=== PATIENT | female | born 1980 | race Two or more races ===

== ENCOUNTER 2017-07-19 08:43 | Emergency (ER) | payer OTHER ==
[~2017-07-19] VITALS: Ht 162.6 cm; Wt 56.7 kg
[~2017-07-19 08:43] MED LIST: PERCOCET 5/3251 TAB PO
[2017-07-19] MEDS ORDERED: PERCOCET 5-3251 EACH PO (12:21)
== END 2017-07-19 12:42 | disposition home or self-care (01) ==
LOC: ER 08:43
DX: R10.2 Pelvic and perineal pain (principal)

== ENCOUNTER 2021-06-27 07:19 | Inpatient (IN) | payer OTHER ==
[~2021-06-27] VITALS: Ht 162.6 cm; Wt 52.2 kg
[~2021-06-27 07:19] MED LIST changes: +PERCOCET 5-3251 EACH PO
== END 2021-07-13 16:25 | disposition home or self-care (01) | DRG 340 ==
LOC: ER 07:19 → SEC-K 12:16 → O/R 12:16 → SURH 17:44 → SURG 06-29 19:06
PROVIDERS: ADMIT Surgery; ATTEND Surgery
PROC: 0DTJ4ZZ Resection of Appendix, Percutaneous Endoscopic Approach (ICD-10-PCS; principal; 2021-06-27 13:00)
PROC: 02HV33Z Insertion of Infusion Device into Superior Vena Cava, Percutaneous Approach (ICD-10-PCS; 2021-06-30)
PROC: 0W9J30Z Drainage of Pelvic Cavity with Drainage Device, Percutaneous Approach (ICD-10-PCS; 2021-07-05)
PROC: BW21YZZ Computerized Tomography (CT Scan) of Abdomen and Pelvis using Other Contrast (ICD-10-PCS; 2021-07-10)
DX: K35.33 Acute appendicitis with perforation, localized peritonitis, and gangrene, with abscess (principal); R10.31 Right lower quadrant pain; R10.2 Pelvic and perineal pain; J45.998 Other asthma; B96.29 Other Escherichia coli [E. coli] as the cause of diseases classified elsewhere; B96.5 Pseudomonas (aeruginosa) (mallei) (pseudomallei) as the cause of diseases classified elsewhere; B96.89 Other specified bacterial agents as the cause of diseases classified elsewhere; Z20.822 Contact with and (suspected) exposure to COVID-19

== ENCOUNTER 2021-07-21 10:54 | Inpatient (IN) | payer OTHER ==
[~2021-07-21] VITALS: Ht 162.6 cm; Wt 51.7 kg
== END 2021-08-08 13:41 | disposition home or self-care (01) | DRG 862 ==
LOC: ER 10:54 → SURG 19:33 → SURH 19:33 → SURG 07-25 03:15 → SURH 07-30 14:30
PROVIDERS: ADMIT Surgery; ATTEND Surgery
PROC: BW21YZZ Computerized Tomography (CT Scan) of Abdomen and Pelvis using Other Contrast (ICD-10-PCS; 2021-07-27)
PROC: 0W9J30Z Drainage of Pelvic Cavity with Drainage Device, Percutaneous Approach (ICD-10-PCS; principal; 2021-07-28)
PROC: 02HV33Z Insertion of Infusion Device into Superior Vena Cava, Percutaneous Approach (ICD-10-PCS; 2021-07-28)
PROC: BW21ZZZ Computerized Tomography (CT Scan) of Abdomen and Pelvis (ICD-10-PCS; 2021-08-02)
DX: T81.49XA Infection following a procedure, other surgical site, initial encounter (principal); K65.1 Peritoneal abscess; K91.89 Other postprocedural complications and disorders of digestive system; R10.84 Generalized abdominal pain; N73.8 Other specified female pelvic inflammatory diseases; B95.61 Methicillin susceptible Staphylococcus aureus infection as the cause of diseases classified elsewhere; B96.89 Other specified bacterial agents as the cause of diseases classified elsewhere; Z20.822 Contact with and (suspected) exposure to COVID-19; N70.11 Chronic salpingitis
CPT/HCPCS: 72198

== ENCOUNTER 2021-08-22 21:51 | Emergency (ER) | payer OTHER ==
[~2021-08-22] VITALS: Ht 162.6 cm; Wt 53.5 kg
[2021-08-23] MEDS ORDERED: LACTULOSE10 GM/151 PO (14:36)
== END 2021-08-23 15:48 ==
LOC: ER 21:51
DX: K91.89 Other postprocedural complications and disorders of digestive system (principal); K59.00 Constipation, unspecified